=== PATIENT | female | born 2000 | race American Indian/Alaskan Native ===

== ENCOUNTER 2019-10-27 08:15 | Emergency (ER) | payer MEDICAID ==
[2019-10-27 08:22] VITALS: BP 129/70
[2019-10-27] MEDS ORDERED: IBUPROFEN 600 MG TAB PO ONE (10:08)
[2019-10-27] MEDS ORDERED: BENZONATATE 100 MG CAP PO ONE (10:08)
[2019-10-27] MEDS ORDERED: ACETAMINOPHEN 325 MG TAB PO ONE (10:08)
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
[2019-10-27] MEDS ORDERED: AZITHROMYCIN 250 MG TAB PO ONE (10:47)
--- NOTE | 2019-10-27 11:06 | XRay Report ---
CHEST 2 VIEWS INDICATION / CLINICAL INFORMATION: cough congestion x 2 weeks. COMPARISON: None available. FINDINGS: SUPPORT DEVICES: None. HEART / MEDIASTINUM: No significant abnormality. LUNGS / PLEURA: Left lower lobe consolidation is noted. No definite pleural effusion. No pneumothorax . ADDITIONAL FINDINGS: No significant additional findings. IMPRESSION: Left lower lobe consolidation. This likely represents pneumonia given the setting of cough and conges tion. Recommend follow-up radiographs within 2 weeks to ensure resolution. Signer Name: Ren Ovalle MD Signed: 10/27/2019 11:01 AM Workstation Name: [id number]
== END 2019-10-27 11:28 | disposition home or self-care (01) ==
LOC: ED 08:15
DX: J40 Bronchitis, not specified as acute or chronic (principal); J18.9 Pneumonia, unspecified organism; Z79.899 Other long term (current) drug therapy
CPT/HCPCS: 71046

== ENCOUNTER 2020-09-12 14:10 | Emergency (ER) | payer MEDICAID ==
[2020-09-12 16:51] VITALS: BP 117/76
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
== END 2020-09-12 19:00 | disposition home or self-care (01) ==
LOC: ED 14:10
DX: S16.1XXA Strain of muscle, fascia and tendon at neck level, initial encounter (principal); M25.531 Pain in right wrist; M25.541 Pain in joints of right hand; Z79.899 Other long term (current) drug therapy; V49.49XA Driver injured in collision with other motor vehicles in traffic accident, initial encounter; Y92.410 Unspecified street and highway as the place of occurrence of the external cause; Y93.89 Activity, other specified; Y99.8 Other external cause status
CPT/HCPCS: 72040